=== PATIENT | male | born 1965 | race Caucasian/White ===

== ENCOUNTER 2019-10-01 00:30 | Emergency (ER) | payer OTHER ==
[~2019-10-01] VITALS: Ht 195.6 cm; Wt 115.7 kg
[2019-10-01] MEDS ORDERED: GLIPIZIDE 10 MG10 MG PO (00:43)
[2019-10-01] MEDS ORDERED: METFORMIN HCL500 M3 PO (00:43)
[2019-10-01] MEDS ORDERED: LOPRESSOR50 MG PO (00:44)
[2019-10-01] MEDS ORDERED: OMEPRAZOLE 20 M20 M1 PO (00:46)
[2019-10-01] MEDS ORDERED: NORVASC 2.5 MG2.5 M1 PO (00:46)
[2019-10-01] MEDS ORDERED: CLONIDINE HCL0.2 M2 PO (00:46)
[2019-10-01] MEDS ORDERED: POTASSIUM PO (00:48)
[2019-10-01] MEDS ORDERED: IRON PO (00:49)
[2019-10-01 01:26] LABS: ABSOLUTE BASOPHILS 0.1 thou/uL (0.0-0.2); ABSOLUTE EOSINOPHILS 0.2 thou/uL (0.0-0.7); ABSOLUTE LYMPHOCYTES 2.2 thou/uL (0.8-5.3); ABSOLUTE MONOCYTES 0.7 thou/uL (0.0-1.2); ABSOLUTE NEUTROPHILS 5.8 thou/uL (1.6-8.1); BASOPHILS 0.7 %; EOSINOPHILS 2.1 %; HEMATOCRIT 41.1 % (42.0-52.0); HEMOGLOBIN 14.4 gm/dL (14.0-18.0); LYMPHOCYTES 24.7 %; MCH 29.2 pg (26.0-34.0); MCV 83.4 fL (80.0-100.0); MONOCYTES 7.8 %; NUCLEATED RBCS 0 /100WBC; PLATELET COUNT* 220 thou/uL (150-400); POLYS 64.7 %; RBC 4.93 mil/uL (4.50-6.00); RDW-CV 14.3 % (10.5-14.5)
[2019-10-01 01:30] LABS: URINE BILIRUBIN NEGATIVE (Negative); URINE BLOOD NEGATIVE (Negative); URINE CLARITY CLEAR; URINE COLOR STRAW; URINE GLUCOSE-RANDOM NEGATIVE (Negative); URINE KETONES NEGATIVE (Negative); URINE LEUKOCYTES-REFLEX NEGATIVE (Negative); URINE NITRITE-REFLEX NEGATIVE (Negative); URINE PROTEIN NEGATIVE (Negative); URINE SPECIFIC GRAVITY <= 1.005 (1.005-1.030); URINE UROBILINOGEN 0.2 E.U./dl (0.2-1.0)
[2019-10-01 01:48] LABS: PROTIME 10.5 Seconds (9.20-11.50)
[2019-10-01 01:50] LABS: CALCIUM 9.2 mg/dL (8.5-10.1); CREATININE 1.3 mg/dL (0.6-1.3); POTASSIUM 3.5 mmol/L (3.5-5.1)
[2019-10-01 02:01] LABS: ALBUMIN 3.7 g/dL (3.4-5.0); TOTAL BILIRUBIN 0.3 mg/dL (<0.1-1.0); TOTAL PROTEIN 8.1 g/dL (6.4-8.2)
[2019-10-01 02:23] LABS: AMP/METHAMP Negative (Negative); BARBITURATES Negative (Negative); BENZODIAZEPINES Negative (Negative); COCAINE Negative (Negative); METHADONE Negative (Negative); OPIATES Negative (Negative); PCP Negative (Negative); THC Negative (Negative)
[2019-10-01 02:47] VITALS: BP 140/86
--- NOTE | 2019-10-01 10:11 | EKG ---
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 : 1965 Requested By: Diana Bello Order Number: [id number] MD: Tyson Victor Measurements Intervals [place] Rate: 115 P: 0 CA: 121 QRS: -44 QRSD: 97 T: 55 QT: 334 QTc: 462 Interpretive Statements Sinus tachycardia Left anterior fascicular block Abnormal R-wave progression, late transition Artifact in lead(s) I,II,III,aVR,aVL,aVF,V1,V2 No previous ECG available for comparison Electronically Signed On 10-01-2019 10:09:42 CDT by Tyson Victor [email or web address] <ELECTRONICALLY SIGNED> By: Tyson Victor MD, FACC 10/01/19 1009 0033 0033 Tyson Victor MD, FAC /EPI
== END 2019-10-01 02:47 | disposition home or self-care (01) ==
LOC: M.ERS 00:30
PROVIDERS: Emergency Medicine
DX: I10 Essential (primary) hypertension (principal); Z88.6 Allergy status to analgesic agent; Z88.0 Allergy status to penicillin; Z88.2 Allergy status to sulfonamides; Z88.8 Allergy status to other drugs, medicaments and biological substances; Z79.899 Other long term (current) drug therapy